=== PATIENT | male | born 1975 | race Caucasian/White ===

== ENCOUNTER 2021-04-08 09:56 | Inpatient (IN) | payer MEDICAID ==
[~2021-04-08] VITALS: Ht 188 cm; Wt 90.3 kg
[2021-04-08] MEDS ORDERED: ASPIRIN 81MG TABLET PO ONE (10:15)
[2021-04-08 10:24] LABS: BASOPHILS % 0.5 % (0.0-2.0); EOSINOPHILS % 1.3 % (0.0-5.0); HEMATOCRIT. 47.7 % (42.0-52.0); LYMPHOCYTES % 19.8 % (20.0-50.0); MEAN CORPUSCULAR HEMOGLOBIN 32.3 pg (28.0-32.0); MEAN CORPUSCULAR VOLUME 95.9 fL (80.0-94.0); MEAN PLATELET VOLUME 8.3 fl (7.4-10.4); MONOCYTES % 7.6 % (2.0-8.0); NEUTROPHILS % 70.8 % (40.0-76.0); PLATELET 355 x1000/uL (130-400); RED BLOOD CELL COUNT 4.97 mill/uL (4.7-6.1); RED CELL DISTRIBUTION WIDTH 14.7 % (11.6-14.6)
[2021-04-08 10:32] LABS: CHLORIDE 110 mEq/L (98-107)
[2021-04-08] MEDS ORDERED: MORPHINE SULFATE 4 MG/ML CPJ (NOT FOR IM USE) IV ONE (11:15)
[2021-04-08 13:23] LABS: *AMPHETAMINES SCREEN URINE NEGATIVE (NEGATIVE)
[2021-04-08 13:24] LABS: *BARBITURATES SCREEN URINE NEGATIVE (NEGATIVE); *BENZODIAZEPINES SCREEN URINE NEGATIVE (NEGATIVE); *COCAINE SCREEN URINE NEGATIVE (NEGATIVE); CANNABINOID URINE SCREEN NEGATIVE (NEGATIVE); METHADONE URINE SCREEN NEGATIVE (NEGATIVE); OPIATES URINE SCREEN NEGATIVE (NEGATIVE); PHENCYCLIDINE URINE SCREEN NEGATIVE (NEGATIVE)
[2021-04-08 13:29] LABS: CLARITY URINE CLEAR (CLEAR); COLOR URINE YELLOW (YELLOW); KETONES URINE NEGATIVE (NEGATIVE); LEUKOCYTE ESTERASE URINE NEGATIVE (NEGATIVE); NITRITE URINE NEGATIVE (NEGATIVE); OCCULT BLOOD URINE NEGATIVE (NEGATIVE); PH URINE 6.5 (4.5-8.0); PROTEIN URINE NEGATIVE (NEGATIVE); SPECIFIC GRAVITY URINE 1.006 (1.005-1.030); UROBILINOGEN URINE 0.2 E.U./dL (0.2-1.0)
[2021-04-08] MEDS ORDERED: REGADENOSON 0.4 MG/5 ML IV NR (13:45)
[2021-04-08] MEDS ORDERED: ACETAMINOPHEN 325MG TABLET PO PRN ×2 (15:00)
[2021-04-08] MEDS ORDERED: DIPHENHYDRAMINE 50MG/ML VIAL IV PRN (15:00)
[2021-04-08] MEDS ORDERED: KETOROLAC 30MG/ML VIAL IV PRN (15:00)
[2021-04-08] MEDS ORDERED: ONDANSETRON HCL 4MG/2ML INJ IV PRN (15:00)
[2021-04-08 21:00] VITALS: BP 110/73
[2021-04-08] MEDS ORDERED: ZOLPIDEM TARTRATE 5MG TABLET PO PRN (21:00)
[2021-04-08 21:30] VITALS: BP 103/71
[2021-04-08 22:00] VITALS: BP 106/72
[2021-04-08] MEDS: BUSPIRONE HCL 10MG TABLET PO SCH (23:48)
[2021-04-08] MEDS: SODIUM CHLORIDE 0.9% INJ 3ML FLUSH IVF SCH (23:49)
[2021-04-09] VITALS (7 sets, daily range): BP systolic 92–110; BP diastolic 61–73
[2021-04-09 06:17] LABS: BASOPHILS % 0.7 % (0.0-2.0); EOSINOPHILS % 4.7 % (0.0-5.0); HEMATOCRIT. 44.1 % (42.0-52.0); LYMPHOCYTES % 26.5 % (20.0-50.0); MEAN CORPUSCULAR HEMOGLOBIN 32.5 pg (28.0-32.0); MEAN CORPUSCULAR VOLUME 95.9 fL (80.0-94.0); MEAN PLATELET VOLUME 8.4 fl (7.4-10.4); MONOCYTES % 8.2 % (2.0-8.0); NEUTROPHILS % 59.9 % (40.0-76.0); PLATELET 331 x1000/uL (130-400); RED CELL DISTRIBUTION WIDTH 14.1 % (11.6-14.6)
[2021-04-09 06:25] LABS: CHLORIDE 112 mEq/L (98-107)
[2021-04-09] MEDS: SODIUM CHLORIDE 0.9% INJ 3ML FLUSH IVF SCH (06:34)
[2021-04-09] MEDS ORDERED: OLAN2.5T29 PO (07:09)
[2021-04-09] MEDS ORDERED: BUSP10TA4 PO (07:09)
[2021-04-09] MEDS ORDERED: MIRT7.5T11 PO (07:09)
[2021-04-09] MEDS ORDERED: REGADENOSON 0.4 MG/5 ML IV ONE (10:01)
[2021-04-09] MEDS: BUSPIRONE HCL 10MG TABLET PO SCH (11:07)
== END 2021-04-09 15:57 | disposition home or self-care (01) | DRG 203 ==
LOC: ER 09:56 → 3WST 11:40 → ENRESERV 18:36
PROVIDERS: ADMIT Internal Medicine; ATTEND Internal Medicine
DX: R07.89 Other chest pain (principal); F32.A Depression, unspecified; F41.9 Anxiety disorder, unspecified; Z20.822 Contact with and (suspected) exposure to COVID-19; Z72.0 Tobacco use; Z79.899 Other long term (current) drug therapy; Z82.49 Family history of ischemic heart disease and other diseases of the circulatory system; Z88.0 Allergy status to penicillin
CPT/HCPCS: 36415; 71045; 78452; 80048; 80053; 80305; 81003; 83880; 84484; 85025; 87426; 93005; 93017; 93306; 99285; A9500; J2270; J2785

== ENCOUNTER 2021-07-05 18:40 | Emergency (ER) | payer MEDICAID ==
[~2021-07-05] VITALS: Ht 188 cm; Wt 92.0 kg
[~2021-07-05 18:40] MED LIST: BUSP10TA4 PO; MIRT7.5T11 PO; OLAN2.5T29 PO
[2021-07-05 18:54] VITALS: BP 113/77
[2021-07-06] MEDS ORDERED: DOCU-138 MT (16:52)
== END 2021-07-05 18:58 | disposition left against medical advice (07) ==
LOC: ER 18:40
DX: Z53.21 Procedure and treatment not carried out due to patient leaving prior to being seen by health care provider (principal); F41.9 Anxiety disorder, unspecified; Z88.0 Allergy status to penicillin

== ENCOUNTER 2021-07-06 15:04 | Emergency (ER) | payer MEDICAID ==
[~2021-07-06] VITALS: Ht 188 cm; Wt 205.0 kg
[2021-07-06 15:18] VITALS: BP 116/77
[2021-07-06] MEDS ORDERED: DOCU-138 MT (16:52)
== END 2021-07-06 17:22 | disposition home or self-care (01) ==
LOC: ER 15:04
DX: K59.00 Constipation, unspecified (principal); K64.8 Other hemorrhoids; F41.9 Anxiety disorder, unspecified; Z88.0 Allergy status to penicillin
CPT/HCPCS: 99282